=== PATIENT | male | born 1955 | race Caucasian/White ===

== ENCOUNTER 2022-04-29 08:48 | Emergency (ER) | payer MEDICARE, OTHER ==
[~2022-04-29] VITALS: Wt 104.3 kg
[2022-04-29] MEDS ORDERED: CLINDAMYCIN HC300 MG PO (09:05)
== END 2022-04-29 09:41 | disposition home or self-care (01) ==
LOC: ED 08:48
DX: S61.512A Laceration without foreign body of left wrist, initial encounter (principal); W45.8XXA Other foreign body or object entering through skin, initial encounter; Y93.89 Activity, other specified; Y92.89 Other specified places as the place of occurrence of the external cause; Y99.8 Other external cause status